=== PATIENT | female | born 1995 | race African-American/Black ===

== ENCOUNTER 2017-07-04 17:27 | Observation (INO) | payer MEDICAID ==
[~2017-07-04] VITALS: Ht 162.6 cm; Wt 74.8 kg
[2017-07-04] MEDS ORDERED: DEXT 5%/LACTATED RINGERS 1,000 ML IV SCH (17:30)
[2017-07-04] MEDS ORDERED: ONDANSETRON HCL 4MG/2ML VIAL IM NR (18:15)
[2017-07-04 19:15] LABS: CHLORIDE 108 mEq/L (98-107)
[2017-07-04 19:24] LABS: CARBON DIOXIDE 19 mEq/L (21-32)
[2017-07-04 19:29] LABS: BASOPHILS % 0.1 % (0.0-2.0); HEMATOCRIT. 27.4 % (36.0-48.0); HEMOGLOBIN. 8.9 g/dL (12.0-16.0); LYMPHOCYTES % 7.3 % (20.0-50.0); MEAN CORPUSCULAR HEMOGLOBIN 24.2 pg (28.0-32.0); MEAN CORPUSCULAR VOLUME 74.2 fL (81.0-99.0); MEAN PLATELET VOLUME 8.3 fl (7.4-10.4); NEUTROPHILS % 87.6 % (40.0-76.0); PLATELET 252 x1000/uL (130-400); RED BLOOD CELL COUNT 3.69 mill/uL (4.2-5.4); RED CELL DISTRIBUTION WIDTH 15.9 % (11.6-14.6)
[2017-07-04 20:01] LABS: CLARITY URINE CLEAR (CLEAR); COLOR URINE YELLOW (YELLOW); KETONES URINE TRACE (NEGATIVE); LEUKOCYTE ESTERASE URINE 1+ (NEGATIVE); NITRITE URINE NEGATIVE (NEGATIVE); OCCULT BLOOD URINE NEGATIVE (NEGATIVE); PROTEIN URINE NEGATIVE (NEGATIVE); SPECIFIC GRAVITY URINE 1.025 (1.005-1.030)
== END 2017-07-04 20:30 | disposition left against medical advice (07) ==
LOC: L&D 17:27
PROVIDERS: ADMIT Obstetrics & Gynecology; ATTEND Obstetrics & Gynecology
DX: O21.2 Late vomiting of pregnancy (principal); Z3A.36 36 weeks gestation of pregnancy
CPT/HCPCS: 36415; 80053; 81001; 85025; 96372; 99281; G0378; J2405; 96360; 96361

== ENCOUNTER 2021-05-10 05:56 | Inpatient (IN) | payer MEDICAID, OTHER ==
[~2021-05-10] VITALS: Ht 162.6 cm; Wt 87.1 kg
[2021-05-10] MEDS ORDERED: DEXT 5%/LR + PITOCIN 20UNITS/L 1,000 ML IV SCH ×2 (06:15→15:00)
[2021-05-10] MEDS ORDERED: BUTORPHANOL TARTRATE 2 MG/ML VIAL IV PRN (06:15)
[2021-05-10] MEDS ORDERED: NALOXONE HCL 0.4 MG/ML 1ML VIAL IM PRN (06:15)
[2021-05-10] MEDS ORDERED: METHYLERGONOVINE MALEATE 0.2 MG/ML IM PRN (06:15)
[2021-05-10] MEDS ORDERED: LIDOCAINE HCL 1% 20ML VIAL (Pyxis) INJ INFIL SCH (06:15)
[2021-05-10] MEDS ORDERED: LACTATED RINGERS 1,000 ML IV SCH ×2 (06:15→06:45)
[2021-05-10] MEDS ORDERED: PENICILLIN G POTASSIUM 5 MMU in DEXT 5% WATER 100 ML IV SCH (07:00)
[2021-05-10 07:29] LABS: BASOPHILS % 0.1 % (0.0-2.0); EOSINOPHILS % 0.3 % (0.0-5.0); HEMATOCRIT. 32.2 % (36.0-48.0); HEMOGLOBIN. 10.1 g/dL (12.0-16.0); LYMPHOCYTES % 14.3 % (20.0-50.0); MEAN CORPUSCULAR HEMOGLOBIN 21.1 pg (28.0-32.0); MEAN CORPUSCULAR VOLUME 67.1 fL (81.0-99.0); MEAN PLATELET VOLUME 8.9 fl (7.4-10.4); MONOCYTES % 7.7 % (2.0-8.0); NEUTROPHILS % 77.6 % (40.0-76.0); PLATELET 379 x1000/uL (130-400); RED CELL DISTRIBUTION WIDTH 19.1 % (11.6-14.6)
[2021-05-10 07:39] LABS: PARTIAL THROMBOPLASTIN TIME 28.7 sec (23.4-31.0); PROTHROMBIN TIME 10.7 sec (9.6-11.0)
[2021-05-10 08:30] LABS: PLATELET ESTIMATE NORMAL
[2021-05-10 09:35] VITALS: BP 127/60
[2021-05-10 10:00] VITALS: BP 115/61
[2021-05-10 10:33] VITALS: BP 117/65
[2021-05-10 11:05] LABS: HEPATITIS B SURFACE ANTIGEN NEGATIVE
[2021-05-10] MEDS ORDERED: PENICILLIN G POTASSIUM 2.5 MMU in DEXTROSE 5% WATER 50 ML IV SCH (12:00)
[2021-05-10 14:46] LABS: CLARITY URINE TURBID (CLEAR); COLOR URINE RED (YELLOW); KETONES URINE 2+ (NEGATIVE); LEUKOCYTE ESTERASE URINE 3+ (NEGATIVE); NITRITE URINE POSITIVE (NEGATIVE); OCCULT BLOOD URINE 3+ (NEGATIVE); PROTEIN URINE 3+ (NEGATIVE)
[2021-05-10] MEDS ORDERED: BISACODYL 10MG SUPP PR PRN (15:00)
[2021-05-10] MEDS ORDERED: ACETAMINOPHEN WITH CODEINE 300/30MG TABLET PO PRN (15:00)
[2021-05-10] MEDS ORDERED: DIPHENHYDRAMINE 25MG CAPSULE PO PRN (15:00)
[2021-05-10] MEDS ORDERED: IBUPROFEN 400MG TABLET PO PRN (15:00)
[2021-05-10] MEDS ORDERED: GLYCERIN/WITCH HAZEL LEAF MEDICATED PAD TOP PRN (15:00)
[2021-05-10] MEDS ORDERED: HEMORRHOIDAL SUPP PR PRN (15:00)
[2021-05-10 15:08] LABS: *AMPHETAMINES SCREEN URINE NEGATIVE (NEGATIVE); *BARBITURATES SCREEN URINE NEGATIVE (NEGATIVE); *BENZODIAZEPINES SCREEN URINE NEGATIVE (NEGATIVE); *COCAINE SCREEN URINE NEGATIVE (NEGATIVE); CANNABINOID URINE SCREEN NEGATIVE (NEGATIVE); METHADONE URINE SCREEN NEGATIVE (NEGATIVE); OPIATES URINE SCREEN NEGATIVE (NEGATIVE); PHENCYCLIDINE URINE SCREEN NEGATIVE (NEGATIVE)
[2021-05-10] MEDS ORDERED: NALOXONE HCL 0.4MG/ML VIAL IV PRN (15:15)
[2021-05-10 15:23] VITALS: BP 105/57
[2021-05-10] MEDS: MAGNESIUM/ALUMINUM HYDROXIDE/SIMETHICONE 30ML UDC PO SCH (17:30)
[2021-05-10] MEDS: SIMETHICONE 80MG TABLET CHEW PO SCH (17:59)
[2021-05-10 20:15] VITALS: BP 119/67
[2021-05-10] MEDS ORDERED: DOCUSATE SODIUM 100MG CAPSULE PO SCH (21:00)
[2021-05-11] MEDS: IBUPROFEN 800MG TABLET PO PRN ×3 (00:33→21:52)
[2021-05-11 00:45] VITALS: BP 123/63
[2021-05-11 07:00] LABS: BASOPHILS % 0.2 % (0.0-2.0); EOSINOPHILS % 0.6 % (0.0-5.0); HEMATOCRIT. 26.9 % (36.0-48.0); HEMOGLOBIN. 8.7 g/dL (12.0-16.0); LYMPHOCYTES % 22.3 % (20.0-50.0); MEAN CORPUSCULAR VOLUME 67.7 fL (81.0-99.0); MEAN PLATELET VOLUME 8.8 fl (7.4-10.4); MONOCYTES % 7.8 % (2.0-8.0); NEUTROPHILS % 69.1 % (40.0-76.0); PLATELET 306 x1000/uL (130-400); RED BLOOD CELL COUNT 3.98 mill/uL (4.2-5.4); RED CELL DISTRIBUTION WIDTH 18.9 % (11.6-14.6)
[2021-05-11 07:30] VITALS: BP 125/65
[2021-05-11] MEDS: CEPHALEXIN 250MG CAPSULE PO SCH ×4 (09:00→23:49)
[2021-05-11] MEDS: MAGNESIUM/ALUMINUM HYDROXIDE/SIMETHICONE 30ML UDC PO SCH ×4 (09:26→21:52)
[2021-05-11] MEDS: FERROUS SULFATE 325MG TABLET PO SCH ×3 (09:26→18:04)
[2021-05-11] MEDS: SIMETHICONE 80MG TABLET CHEW PO SCH ×4 (09:26→21:52)
[2021-05-11] MEDS: PRENATAL VIT/FE FUMARATE/FA TABLET PO SCH (09:27)
[2021-05-11 16:04] VITALS: BP 107/52
[2021-05-11 20:06] VITALS: BP 120/74
[2021-05-12 04:44] VITALS: BP 109/67
[2021-05-12] MEDS: CEPHALEXIN 250MG CAPSULE PO SCH (06:36)
[2021-05-12] MEDS ORDERED: IBUP-2030 PO (06:56)
[2021-05-12 07:35] VITALS: BP 115/82
[2021-05-12] MEDS: PRENATAL VIT/FE FUMARATE/FA TABLET PO SCH (08:27)
[2021-05-12] MEDS: SIMETHICONE 80MG TABLET CHEW PO SCH (08:27)
[2021-05-12] MEDS: MAGNESIUM/ALUMINUM HYDROXIDE/SIMETHICONE 30ML UDC PO SCH (08:27)
[2021-05-12] MEDS: FERROUS SULFATE 325MG TABLET PO SCH (08:28)
== END 2021-05-12 11:00 | disposition home or self-care (01) | DRG 560 ==
LOC: INTOOBSV 05:56 → OBSVTOIN 05:56 → 8 EST LDRP 05:56 → 8EST 09:25
PROVIDERS: ADMIT Obstetrics & Gynecology; ATTEND Obstetrics & Gynecology
PROC: 10E0XZZ Delivery of Products of Conception, External Approach (ICD-10-PCS; principal; 2021-05-10)
PROC: 3E0R3BZ Introduction of Anesthetic Agent into Spinal Canal, Percutaneous Approach (ICD-10-PCS; 2021-05-10)
PROC: 00HU33Z Insertion of Infusion Device into Spinal Canal, Percutaneous Approach (ICD-10-PCS; 2021-05-10)
DX: O80 Encounter for full-term uncomplicated delivery (principal); Z37.0 Single live birth; Z20.822 Contact with and (suspected) exposure to COVID-19; Z3A.39 39 weeks gestation of pregnancy
CPT/HCPCS: 36415; 80305; 81003; 85025; 86592; 86703; 86762; 86850; 86900; 87077; 87340; 87426; 99281; J0595; J2540; J2590; J7060; J7120